=== PATIENT | female | born 1985 | race Caucasian/White ===

== ENCOUNTER 2021-10-04 02:02 | Emergency (ER) | payer MEDICAID ==
[~2021-10-04] VITALS: Ht 172.7 cm; Wt 56.7 kg
[2021-10-04 03:18] LABS: Basophils # (auto) 0 10 ^3/uL (0-0.2); Basophils % (auto) 0.3 % (0.0-2.0); Eosinophils # (auto) 0 10 ^3/uL (0-0.8); Hematocrit 36.1 % (36.0-46.0); Hemoglobin 11.9 g/dL (12.2-16.2); Lymphocytes # (auto) 1.7 10 ^3/uL (0.4-5.4); Lymphocytes % (auto) 17.1 % (10.0-50.0); Mean Corpuscular Hemoglobin 29.3 pg (28.0-32.0); Monocytes # (auto) 0.8 10 ^3/uL (0-1.3); Monocytes % (auto) 8.6 % (0.0-12.0); Neutrophils # (auto) 7.1 10 ^3/uL (1.6-8.6); Red Blood Cells 4.06 10^6/uL (4.0-5.20); Red Cell Distribution Width 13.8 % (11.8-14.3); White Blood Cell 9.6 10^3/uL (4.4-10.8)
[2021-10-04 03:38] LABS: Albumin 3.9 g/dL (3.4-5.0)
[2021-10-04 03:43] LABS: Bilirubin, Total 0.5 mg/dL (0.2-1.0); Total Protein 7.8 g/dL (6.4-8.2)
[2021-10-04 08:27] VITALS: BP 123/70
[2021-10-04] MEDS ORDERED: CEPH-509 PO (08:54)
[2021-10-04] MEDS ORDERED: PANT40TA2 PO (08:54)
[2021-10-04] MEDS ORDERED: METR500T PO (08:54)
[2021-10-04] MEDS ORDERED: PANTOPRAZOLE 40 MG TAB PO ONE (09:00)
[2021-10-04 09:13] LABS: Urine Bacteria NONE SEEN /hpf (None Seen); Urine Blood Negative /uL (Negative); Urine Mucus FEW (None Seen); Urine Specific Gravity 1.025 (1.001-1.035); Urine WBC 4 /hpf (0 - 5)
[2021-10-04] MEDS ORDERED: PANTOPRAZOLE 40 MG/10 ML VIAL INJ IV ONE (09:15)
[2021-10-04] MEDS ORDERED: SODIUM CHLORIDE 0.9% 1,000 ML IV ONE (09:30)
[2021-10-04] MEDS ORDERED: ONDA-144 PO (10:08)
== END 2021-10-04 10:14 | disposition home or self-care (01) ==
LOC: ER 02:02 → EDBD 02:02 → ER 10:13
DX: K25.9 Gastric ulcer, unspecified as acute or chronic, without hemorrhage or perforation (principal); K29.70 Gastritis, unspecified, without bleeding; E11.9 Type 2 diabetes mellitus without complications; K21.9 Gastro-esophageal reflux disease without esophagitis; F17.210 Nicotine dependence, cigarettes, uncomplicated; Z79.899 Other long term (current) drug therapy
CPT/HCPCS: 36415; 80053; 81001; 81025; 85025; 96374; 99283; C9113; J7030

== ENCOUNTER 2022-10-17 10:12 | Inpatient (IN) | payer MEDICAID ==
[~2022-10-17] VITALS: Ht 172.7 cm; Wt 58.8 kg
[~2022-10-17 10:12] MED LIST: CEPH-509 PO; METR500T PO; ONDA-144 PO; PANT40TA2 PO
[2022-10-17] MEDS ORDERED: SODIUM CHLORIDE 0.9% 1,000 ML IV ONE (11:15)
[2022-10-17] MEDS ORDERED: METOCLOPRAMIDE HCL 5MG/ml INJ 2ml VIAL IV ONE (11:15)
[2022-10-17 11:25] LABS: Basophils # (auto) 0.1 10 ^3/uL (0-0.2); Basophils % (auto) 0.5 % (0.0-2.0); Eosinophils # (auto) 0 10 ^3/uL (0-0.8); Hematocrit 42.2 % (36.0-46.0); Hemoglobin 13.7 g/dL (12.2-16.2); Lymphocytes # (auto) 0.9 10 ^3/uL (0.4-5.4); Lymphocytes % (auto) 7.5 % (10.0-50.0); Mean Corpuscular Hemoglobin 28.3 pg (28.0-32.0); Mean Corpuscular Hgb Conc. 32.4 g/dL (32.0-36.0); Mean Corpuscular Volume 87.4 fL (80.0-100.0); Monocytes # (auto) 0.7 10 ^3/uL (0-1.3); Monocytes % (auto) 5.9 % (0.0-12.0); Neutrophils # (auto) 10.1 10 ^3/uL (1.6-8.6); Neutrophils % (auto) 86.1 % (37.0-80.0); Red Blood Cells 4.83 10^6/uL (4.0-5.20); Red Cell Distribution Width 14.6 % (11.8-14.3); White Blood Cell 11.7 10^3/uL (4.4-10.8)
[2022-10-17 12:00] LABS: Albumin 3.9 g/dL (3.4-5.0); Calcium 8.9 mg/dL (8.5-10.1); Potassium 3.5 mmol/L (3.5-5.1)
[2022-10-17 12:04] LABS: BUN/Creatinine Ratio 23.8 (10.0-20.0); Bilirubin, Total 0.6 mg/dL (0.2-1.0); Total Protein 8.4 g/dL (6.4-8.2)
[2022-10-17] MEDS ORDERED: SOD CHL 0.9%/ KCL 40MEQ 1,000 ML IV ONE (12:45)
[2022-10-17] MEDS ORDERED: PANTOPRAZOLE 40 MG/10 ML VIAL INJ IV ONE (12:45)
[2022-10-17] MEDS ORDERED: InsuLIN REG 1unit/0.01ml Soln (100units/ml) SC ONE (12:45)
[2022-10-17] MEDS: POTASSIUM EFFERVESENT TAB 25 MEQ PO ONE ×2 (12:55→13:05)
[2022-10-17 13:02] LABS: Urine Bacteria FEW /hpf (None Seen); Urine Blood Negative /uL (Negative); Urine Specific Gravity 1.028 (1.001-1.035); Urine WBC 2 /hpf (0 - 5)
[2022-10-17 13:11] VITALS: PULSE 109; RESP 13
[2022-10-17] MEDS ORDERED: NITROGLYCERIN 0.4 MG SL TAB SL PRN (15:45)
[2022-10-17] MEDS ORDERED: DEXTROSE (50%) 50ML SYRG IV PRN ×2 (15:45→17:45)
[2022-10-17] MEDS ORDERED: MORPHINE SULFATE INJ 2 MG/ml SYRG IV PRN (15:45)
[2022-10-17] MEDS ORDERED: metroNIDAZOLE 500MG/100ML 100 ML IV ONE (16:30)
[2022-10-17] MEDS ORDERED: cefTRIAXone 1GM/50ML D5W 50 ML IV ONE (16:30)
[2022-10-17] MEDS ORDERED: ACCU-CHEK COMFORT CURVE STRIP VI SCH (17:00)
[2022-10-17] MEDS ORDERED: InsuLIN REG 1unit/0.01ml Soln (100units/ml) SC SCH ×3 (17:00→22:00)
[2022-10-17 17:19] LABS: BUN/Creatinine Ratio 26.4 (10.0-20.0); Calcium 8.5 mg/dL (8.5-10.1); Potassium 3.6 mmol/L (3.5-5.1)
[2022-10-17 17:22] LABS: Lactic Acid w/Reflex 2.6 mmol/L (0.4-2.0)
[2022-10-17 17:38] LABS: INR 1.04 (0.9-1.15); Partial Thromboplastin Time 25.7 SEC (24.5-34.5)
[2022-10-17] MEDS: SODIUM CHLORIDE 0.9% 1,000 ML IV SCH ×2 (17:56→20:31)
[2022-10-17 18:51] LABS: Creatinine, Urine 46 mg/dL (30.0-125.0); Sodium Urine 30 mmol/L (40-220)
[2022-10-17] MEDS: ONDANSETRON HCL 4 MG/2 ML VIAL IV PRN (19:41)
[2022-10-17] MEDS: ACCU-CHEK COMFORT CURVE STRIP VI SCH (21:33)
[2022-10-17 21:39] LABS: BUN/Creatinine Ratio 34.1 (10.0-20.0); Calcium 8.3 mg/dL (8.5-10.1); Potassium 4.1 mmol/L (3.5-5.1)
[2022-10-17] MEDS: metroNIDAZOLE 500MG/100ML 100 ML IV SCH (21:40)
[2022-10-17] MEDS: PANTOPRAZOLE 40 MG/10 ML VIAL INJ IV SCH (21:40)
[2022-10-17] MEDS: ACETAMINOPHEN 325 MG TAB PO PRN (22:20)
[2022-10-18] MEDS: SODIUM CHLORIDE 0.9% 1,000 ML IV SCH ×5 (00:31→17:51)
[2022-10-18] MEDS: ONDANSETRON HCL 4 MG/2 ML VIAL IV PRN ×5 (01:34→19:04)
[2022-10-18] MEDS: metroNIDAZOLE 500MG/100ML 100 ML IV SCH ×2 (05:42→14:15)
[2022-10-18 06:02] LABS: Basophils # (auto) 0 10 ^3/uL (0-0.2); Basophils % (auto) 0.3 % (0.0-2.0); Eosinophils # (auto) 0 10 ^3/uL (0-0.8); Eosinophils % (auto) 0.2 % (0.0-7.0); Hematocrit 34.8 % (36.0-46.0); Hemoglobin 11.4 g/dL (12.2-16.2); Lymphocytes # (auto) 2.2 10 ^3/uL (0.4-5.4); Mean Corpuscular Hemoglobin 28.6 pg (28.0-32.0); Mean Corpuscular Hgb Conc. 32.7 g/dL (32.0-36.0); Mean Corpuscular Volume 87.4 fL (80.0-100.0); Monocytes # (auto) 0.8 10 ^3/uL (0-1.3); Monocytes % (auto) 6.4 % (0.0-12.0); Neutrophils % (auto) 76.1 % (37.0-80.0); Red Blood Cells 3.98 10^6/uL (4.0-5.20); Red Cell Distribution Width 14.6 % (11.8-14.3); White Blood Cell 13.1 10^3/uL (4.4-10.8)
[2022-10-18 06:23] LABS: Albumin 3.2 g/dL (3.4-5.0); Calcium 8.4 mg/dL (8.5-10.1); Potassium 3.9 mmol/L (3.5-5.1)
[2022-10-18] MEDS: ACCU-CHEK COMFORT CURVE STRIP VI SCH ×3 (06:24→17:52)
[2022-10-18] MEDS: InsuLIN REG 1unit/0.01ml Soln (100units/ml) SC SCH ×3 (06:27→17:52)
[2022-10-18 06:29] LABS: BUN/Creatinine Ratio 31.6 (10.0-20.0); Bilirubin, Total 0.4 mg/dL (0.2-1.0); Total Protein 6.8 g/dL (6.4-8.2)
[2022-10-18 07:45] VITALS: RESP 15; O2SAT 98
[2022-10-18] MEDS ORDERED: cefTRIAXone 1GM/50ML D5W 50 ML IV SCH (09:00)
[2022-10-18] MEDS: PANTOPRAZOLE 40 MG/10 ML VIAL INJ IV SCH ×2 (09:57→21:58)
[2022-10-18 17:00] VITALS: BP 133/83; PULSE 76; RESP 17; TEMP 98.2; O2SAT 98
[2022-10-18] MEDS ORDERED: DEXTROSE (50%) 50ML SYRG IV PRN (17:15)
[2022-10-18 18:12] VITALS: BP 133/83; PULSE 76; RESP 17; TEMP 98.2; O2SAT 98
[2022-10-18 19:00] VITALS: RESP 18
[2022-10-18 19:41] LABS: Basophils # (auto) 0 10 ^3/uL (0-0.2); Basophils % (auto) 0.3 % (0.0-2.0); Eosinophils # (auto) 0.1 10 ^3/uL (0-0.8); Eosinophils % (auto) 0.5 % (0.0-7.0); Hematocrit 32.9 % (36.0-46.0); Hemoglobin 10.8 g/dL (12.2-16.2); Lymphocytes # (auto) 2.1 10 ^3/uL (0.4-5.4); Lymphocytes % (auto) 20.2 % (10.0-50.0); Mean Corpuscular Hemoglobin 28.6 pg (28.0-32.0); Mean Corpuscular Hgb Conc. 32.8 g/dL (32.0-36.0); Mean Corpuscular Volume 87.3 fL (80.0-100.0); Monocytes # (auto) 0.6 10 ^3/uL (0-1.3); Neutrophils # (auto) 7.7 10 ^3/uL (1.6-8.6); Nucleated Red Blood Cells % 0.1 %; Red Blood Cells 3.77 10^6/uL (4.0-5.20); Red Cell Distribution Width 14.4 % (11.8-14.3); White Blood Cell 10.6 10^3/uL (4.4-10.8)
[2022-10-18 20:19] LABS: Calcium 7.9 mg/dL (8.5-10.1); Potassium 3.7 mmol/L (3.5-5.1)
[2022-10-18 20:21] LABS: BUN/Creatinine Ratio 24.6 (10.0-20.0)
[2022-10-18 21:43] VITALS: BP 126/80; PULSE 81; RESP 18; TEMP 98.8; O2SAT 98
[2022-10-18] MEDS: ACETAMINOPHEN 325 MG TAB PO PRN (23:58)
[2022-10-19] MEDS: ACCU-CHEK COMFORT CURVE STRIP VI SCH ×5 (00:20→23:16)
[2022-10-19] MEDS: SODIUM CHLORIDE 0.9% 1,000 ML IV SCH ×4 (01:02→21:30)
[2022-10-19 04:29] VITALS: BP 127/80; PULSE 77; RESP 18; TEMP 98.6; O2SAT 98
[2022-10-19] MEDS: InsuLIN REG 1unit/0.01ml Soln (100units/ml) SC SCH ×6 (06:24→23:16)
[2022-10-19 08:11] LABS: Basophils # (auto) 0 10 ^3/uL (0-0.2); Basophils % (auto) 0.5 % (0.0-2.0); Eosinophils # (auto) 0.2 10 ^3/uL (0-0.8); Eosinophils % (auto) 2.5 % (0.0-7.0); Hemoglobin 10.8 g/dL (12.2-16.2); Lymphocytes # (auto) 2.3 10 ^3/uL (0.4-5.4); Lymphocytes % (auto) 26.7 % (10.0-50.0); Mean Corpuscular Hemoglobin 28.8 pg (28.0-32.0); Mean Corpuscular Hgb Conc. 32.7 g/dL (32.0-36.0); Mean Corpuscular Volume 88.1 fL (80.0-100.0); Monocytes # (auto) 0.6 10 ^3/uL (0-1.3); Monocytes % (auto) 7.1 % (0.0-12.0); Neutrophils # (auto) 5.5 10 ^3/uL (1.6-8.6); Neutrophils % (auto) 63.2 % (37.0-80.0); Nucleated Red Blood Cells % 0.2 %; Red Blood Cells 3.75 10^6/uL (4.0-5.20); Red Cell Distribution Width 13.9 % (11.8-14.3); White Blood Cell 8.7 10^3/uL (4.4-10.8)
[2022-10-19 08:15] LABS: Potassium 3.4 mmol/L (3.5-5.1)
[2022-10-19 08:20] LABS: BUN/Creatinine Ratio 14.9 (10.0-20.0)
[2022-10-19] MEDS ORDERED: FLUMAZENIL 0.1 MG/ML INJ 10ML MDV IV ONE (08:47)
[2022-10-19] MEDS ORDERED: NALOXONE HCL 0.4 MG/ML VIAL ONE (08:47)
[2022-10-19] MEDS ORDERED: SODIUM CHLORIDE LOCK 10 ML ONE (08:47)
[2022-10-19 09:00] VITALS: BP 113/70; PULSE 79; RESP 20; TEMP 98.9; O2SAT 99
[2022-10-19] MEDS: PANTOPRAZOLE 40 MG/10 ML VIAL INJ IV SCH ×2 (09:40→21:16)
[2022-10-19] MEDS ORDERED: LIDOCAINE VISCOUS 2% 15ML UD ONE (09:45)
[2022-10-19 11:19] VITALS: O2SAT 98
[2022-10-19] MEDS: fentaNYL CITRATE 100 MCG/2 ML VL ONE ×2 (11:26→11:29)
[2022-10-19] MEDS: diphenhdrAMINE HCL 50 MG/1 ML VL ONE ×2 (11:26→11:28)
[2022-10-19] MEDS: MIDAZOLAM HCL 5 MG/ML-1ML VIAL ONE ×3 (11:26→11:32)
[2022-10-19 11:42] VITALS: PULSE 107; RESP 15; O2SAT 100
[2022-10-19] MEDS ORDERED: POTASSIUM CHL 20 Meq TABLET PO ONE (16:00)
[2022-10-19 16:28] VITALS: BP 135/85; PULSE 90; RESP 20; TEMP 97.9; O2SAT 100
[2022-10-19] MEDS: SUCRALFATE 1 GM/10 ML ORAL SUSP PO SCH ×2 (17:15→21:16)
[2022-10-19 22:00] VITALS: BP 124/81; PULSE 78; RESP 17; TEMP 97.9; O2SAT 98
[2022-10-20 05:00] VITALS: BP 125/77; PULSE 81; RESP 16; TEMP 97.9; O2SAT 99
[2022-10-20] MEDS: ACCU-CHEK COMFORT CURVE STRIP VI SCH ×2 (06:06→10:52)
[2022-10-20] MEDS: SUCRALFATE 1 GM/10 ML ORAL SUSP PO SCH ×2 (06:07→10:53)
[2022-10-20] MEDS: InsuLIN REG 1unit/0.01ml Soln (100units/ml) SC SCH ×2 (06:28→10:55)
[2022-10-20] MEDS: PANTOPRAZOLE 40 MG/10 ML VIAL INJ IV SCH (08:15)
[2022-10-20] MEDS: SODIUM CHLORIDE 0.9% 1,000 ML IV SCH (08:17)
[2022-10-20 08:59] LABS: Calcium 8.6 mg/dL (8.5-10.1); Potassium 4.2 mmol/L (3.5-5.1)
[2022-10-20 09:00] VITALS: BP 149/77; PULSE 69; RESP 20; TEMP 97.8; O2SAT 100
[2022-10-20 09:01] LABS: BUN/Creatinine Ratio 9.5 (10.0-20.0)
[2022-10-20 09:52] LABS: Opiate Scree,Urine NEGATIVE (NEGATIVE)
[2022-10-20 10:02] LABS: Alcohol, Urine < 3.0 mg/dL (0-10); Amphetamine Screen, Urine NEGATIVE (NEGATIVE); Barbiturate Scree,Urine NEGATIVE (NEGATIVE); Benzodiazephine Screen, Urine POSITIVE (NEGATIVE); Cannabinoid Screen, Urine POSITIVE (NEGATIVE); Cocaine Screen, Urine NEGATIVE (NEGATIVE); Phencyclidine Screen, Urine NEGATIVE (NEGATIVE)
[2022-10-20] MEDS ORDERED: INSLANTI SC (11:08)
[2022-10-20] MEDS ORDERED: PANT40TA2 PO (11:08)
[2022-10-20] MEDS ORDERED: SUCR1TAB22 PO (11:08)
[2022-10-20] MEDS ORDERED: INSU100I49 SC (11:08)
[2022-10-20 13:15] LABS: Basophils # (auto) 0.1 10 ^3/uL (0-0.2); Eosinophils # (auto) 0.2 10 ^3/uL (0-0.8); Eosinophils % (auto) 4.2 % (0.0-7.0); Hematocrit 40.3 % (36.0-46.0); Hemoglobin 13.2 g/dL (12.2-16.2); Lymphocytes # (auto) 2.2 10 ^3/uL (0.4-5.4); Lymphocytes % (auto) 41.5 % (10.0-50.0); Mean Corpuscular Hgb Conc. 32.7 g/dL (32.0-36.0); Mean Corpuscular Volume 88.6 fL (80.0-100.0); Monocytes # (auto) 0.4 10 ^3/uL (0-1.3); Monocytes % (auto) 6.9 % (0.0-12.0); Neutrophils # (auto) 2.5 10 ^3/uL (1.6-8.6); Neutrophils % (auto) 46.4 % (37.0-80.0); Nucleated Red Blood Cells % 0.1 %; Red Blood Cells 4.55 10^6/uL (4.0-5.20); Red Cell Distribution Width 14.1 % (11.8-14.3); White Blood Cell 5.4 10^3/uL (4.4-10.8)
== END 2022-10-20 13:06 | disposition home or self-care (01) | DRG 241 ==
LOC: EDBD 10:12 → ER 10:12 → TELE 16:12 → TELE-WESTW 10-18 15:16 → WEST WING 10-20 04:06
PROVIDERS: ADMIT Internal Medicine; ATTEND Internal Medicine
PROC: 0DB68ZX Excision of Stomach, Via Natural or Artificial Opening Endoscopic, Diagnostic (ICD-10-PCS; 2022-10-19)
PROC: 0DB38ZX Excision of Lower Esophagus, Via Natural or Artificial Opening Endoscopic, Diagnostic (ICD-10-PCS; 2022-10-19)
PROC: 0DB98ZX Excision of Duodenum, Via Natural or Artificial Opening Endoscopic, Diagnostic (ICD-10-PCS; principal; 2022-10-19 11:19)
DX: K29.71 Gastritis, unspecified, with bleeding (principal); N17.0 Acute kidney failure with tubular necrosis; E11.00 Type 2 diabetes mellitus with hyperosmolarity without nonketotic hyperglycemic-hyperosmolar coma (NKHHC); K22.11 Ulcer of esophagus with bleeding; D72.829 Elevated white blood cell count, unspecified; D64.9 Anemia, unspecified; E86.0 Dehydration; E87.6 Hypokalemia; F17.210 Nicotine dependence, cigarettes, uncomplicated; K21.9 Gastro-esophageal reflux disease without esophagitis; K44.9 Diaphragmatic hernia without obstruction or gangrene; Z87.11 Personal history of peptic ulcer disease; Z87.19 Personal history of other diseases of the digestive system; Z88.8 Allergy status to other drugs, medicaments and biological substances
CPT/HCPCS: 36415; 43239; 71045; 74176; 80048; 80053; 80061; 80307; 81001; 82010; 82570; 82962; 83036; 83605; 83690; 84300; 84443; 84702; 85025; 85610; 85730; 86141; 86850; 86900; 86901; 87040; 87086; 96361; 96374; 96375; C9113; G0378; J0696; J1815; J2250; J2405; J3490